=== PATIENT | female | born 1955 | race Caucasian/White ===

== ENCOUNTER 2024-08-29 10:15 | Outpatient (CLI) | payer MEDICARE | END 2024-08-29 10:16 | disposition home or self-care (01) | LOC: CSHMAMMO 10:15 | PROVIDERS: ATTEND Family Medicine | DX: Z12.31 Encounter for screening mammogram for malignant neoplasm of breast (principal); N95.9 Unspecified menopausal and perimenopausal disorder; M85.89 Other specified disorders of bone density and structure, multiple sites; Z80.3 Family history of malignant neoplasm of breast | CPT/HCPCS: 77063; 77067; 77080 ==

== ENCOUNTER 2025-05-31 05:50 | Inpatient (IN) | payer OTHER ==
[2025-05-31] MEDS ORDERED: Glucagon 1 MG/ML KIT ONE (06:35)
[2025-05-31] MEDS ORDERED: Bupivacaine HCl 0.5%/Epinephrine 1:200,000/PF 30 ml Vial ONE (06:35)
[2025-05-31] MEDS ORDERED: PROPOFOL 40 ML ONE (06:54)
[2025-05-31] MEDS ORDERED: SUGAMMADEX SODIUM 200 MG/2 ML VIAL ONE (06:54)
[2025-05-31] MEDS ORDERED: Lidocaine 1% PF 5 ML VIAL ONE (06:54)
[2025-05-31] MEDS ORDERED: Rocuronium Bromide 10 MG/ML (10ML VIAL) ONE (06:54)
[2025-05-31] MEDS ORDERED: Ondansetron PF 4 MG/2 ML Vial ONE (06:54)
[2025-05-31] MEDS ORDERED: CEFAZOLIN 2 GM VIAL ONE (07:15)
[2025-05-31] MEDS ORDERED: PHENYLEPHRINE-NS 100 MCG/ML 10 ML SYRINGE ONE (08:42)
[2025-05-31] MEDS ORDERED: HYDROcodone/Acetaminophen 5/325 mg Tablet PO PRN (08:43)
[2025-05-31] MEDS: HYDROcodone/Acetaminophen 5/325 mg Tablet PO PRN (10:11)
[2025-05-31] MEDS: Famotidine/PF 20 mg/2ml Vial SLOW IVP SCH (10:12)
[2025-05-31 13:42] VITALS: BMI 22.1
[2025-05-31] MEDS: Acetaminophen 325 MG TAB PO PRN (20:42)
[2025-05-31] MEDS: Ondansetron PF 4 MG/2 ML Vial IVP PRN (20:43)
[2025-06-01 06:09] LABS: ALT (SGPT) 157 U/L (Less than 34); AST (SGOT) 85 U/L (11-34); Albumin 3.5 g/dL (3.1-4.5); Alkaline Phosphatase 203 U/L (40-110); Anion Gap 11 mmol/L (10-20); BUN (Urea Nitrogen) 10 mg/dL (9.8-20.1); Bilirubin, Total 0.3 mg/dL (0.3-1.2); Calc. Creatinine Clearance 70 mL/min (70-130); Calcium 8.8 mg/dL (7.8-10.44); Carbon Dioxide 27 mmol/L (23-31); Chloride 105 mmol/L (98-107); Globulin 3.3 g/dL (2.4-3.5); Glucose 97 mg/dL (83-110); Potassium 3.9 mmol/L (3.5-5.1); Sodium 139 mmol/L (136-145)
[2025-06-01] MEDS ORDERED: PROPOFOL 20 ML ONE (11:34)
[2025-06-01] MEDS ORDERED: Lidocaine 1% PF 5 ML VIAL ONE (11:34)
[2025-06-01] MEDS ORDERED: Rocuronium Bromide 10 MG/ML (10ML VIAL) ONE (11:34)
[2025-06-01] MEDS ORDERED: LevoFLOXacin D5W 500 mg (100 mL) BAG ONE (12:10)
[2025-06-01] MEDS ORDERED: PHENYLEPHRINE-NS 100 MCG/ML 10 ML SYRINGE ONE (12:49)
[2025-06-01] MEDS ORDERED: SUGAMMADEX SODIUM 200 MG/2 ML VIAL ONE (13:37)
[2025-06-01] MEDS ORDERED: Ondansetron PF 4 MG/2 ML Vial ONE (13:37)
[2025-06-01 17:47] LABS: #Basophils 0.03 10x3/uL (0.0-0.2); #Eosinophils 0.06 10x3/uL (0.0-0.5); #Monocytes 0.78 10x3/uL (0.0-1.1); #Neutrophils 6.58 10x3/uL (1.5-8.4); %Basophils 0.3 % (0.0-2.0); %Eosinophils 0.7 % (0.0-6.0); %Lymphocytes 13.9 % (18.0-47.0); %Monocytes 9.0 % (0.0-10.0); %Neutrophils 75.9 % (40.0-75.0); Hematocrit 33.3 % (34.9-44.5); Hemoglobin 11.3 g/dL (12.0-15.5); Mean Corpuscular Hemoglobin 31.3 pg (27.0-33.0); Mean Corpuscular Volume 92.2 fL (81.6-98.3); Platelet Count 299 10x3/uL (150-450); Red Blood Cell (RBC) Count 3.61 10x6/uL (3.90-5.03); White Blood Cell (WBC) Count 8.68 10x3/uL (3.5-10.5)
[2025-06-01 18:55] LABS: ALT (SGPT) 205 U/L (Less than 34); AST (SGOT) 267 U/L (11-34); Albumin 3.3 g/dL (3.1-4.5); Alkaline Phosphatase 278 U/L (40-110); Anion Gap 11 mmol/L (10-20); BUN (Urea Nitrogen) 9 mg/dL (9.8-20.1); Bilirubin, Total 1.0 mg/dL (0.3-1.2); Calc. Creatinine Clearance 68 mL/min (70-130); Calcium 8.8 mg/dL (7.8-10.44); Carbon Dioxide 28 mmol/L (23-31); Chloride 106 mmol/L (98-107); Globulin 3.5 g/dL (2.4-3.5); Glucose 106 mg/dL (83-110); Potassium 3.2 mmol/L (3.5-5.1); Sodium 142 mmol/L (136-145)
[2025-06-01 19:05] LABS: Lipase Greater than 16000 U/L (8-78)
[2025-06-02 00:16] VITALS: BP 124/72; TEMP 98.3
[2025-06-02] MEDS ORDERED: Cholecalciferol 1,000 UNITS (25 MCG) TAB PO SCH (09:00)
[2025-06-02] MEDS ORDERED: LevoFLOXacin 500 mg/D5W 500 MG in Premix 1 BAG IVPB SCH (12:00)
== END 2025-06-02 02:30 | disposition short-term general hospital (02) | DRG 417 ==
LOC: CSHSDC 05:50 → CSHTELE 09:45
PROVIDERS: ADMIT Surgery; ATTEND Surgery
PROC: 0FT44ZZ Resection of Gallbladder, Percutaneous Endoscopic Approach (ICD-10-PCS; principal; 2025-05-31)
PROC: 0FJB8ZZ Inspection of Hepatobiliary Duct, Via Natural or Artificial Opening Endoscopic (ICD-10-PCS; 2025-06-01)
DX: K80.46 Calculus of bile duct with acute and chronic cholecystitis without obstruction (principal); K85.90 Acute pancreatitis without necrosis or infection, unspecified; F33.9 Major depressive disorder, recurrent, unspecified; H91.93 Unspecified hearing loss, bilateral; K83.8 Other specified diseases of biliary tract; E78.5 Hyperlipidemia, unspecified; K21.9 Gastro-esophageal reflux disease without esophagitis; M19.90 Unspecified osteoarthritis, unspecified site; E78.2 Mixed hyperlipidemia; F41.1 Generalized anxiety disorder; Z96.21 Cochlear implant status; Z98.890 Other specified postprocedural states; Z90.710 Acquired absence of both cervix and uterus; Z79.899 Other long term (current) drug therapy; Z87.891 Personal history of nicotine dependence
CPT/HCPCS: 36415; 74018; 74330; 80053; 83690; 85025; 88304; C1889; J1100; J1308; J1611; J1956; J2250; J2270; J2405; J2550; J2704; J3010; J7120; Q9967